=== PATIENT | male | born 1995 | race Hispanic/Latino ===

== ENCOUNTER 2017-05-30 23:06 | Emergency (ER) | payer BC ==
[2017-05-30 23:15] VITALS: BP 129/75; PULSE 66; RESP 16; TEMP 97.3; O2SAT 95
[2017-05-30] MEDS ORDERED: Sodium Chloride 0.9% 1,000 ML IV STA (23:35)
--- NOTE | 2017-05-30 23:53 | ED PDOC ---
HPI: Psych/Substance Abuse Time Seen by Provider: 05/30/17 23:10 Chief Complaint (Nursing): Alcohol Ingestion Chief Complaint (Provider): Alcohol Ingestion ED Caveat: Intoxicated Additional Complaint(s): 21 year old male brought in by EMS for evaluation of alcohol intoxication. History is limited due to alcohol intoxication. Patient was found outside of a bar by police and EMS lying on the sidewalk covered in his own vomit, presumably intoxicated. PMD: unknown Past Medical History Reviewed: Historical Data, Nursing Documentation, Vital Signs, Unable To Obtain (due to alcohol intoxication) Vital Signs: Last Vital Signs Temp 97.3 F L 05/30/17 23:13 Pulse 66 05/30/17 23:13 Resp 16 05/30/17 23:13 BP 129/75 05/30/17 23:13 Pulse Ox 95 05/30/17 23:13 - Family History Family History: States: Unknown Family Hx - Social History Current smoker - smoking cessation education provided: No Alcohol: Social Drugs: Denies - Allergies Allergies/Adverse Reactions: Allergies Allergy/AdvReac Type Severity Reaction Status Date / Time No Known Allergies Allergy Verified 05/30/17 23:15 Review of Systems Review Of Systems: ROS cannot be obtained secondary to pt's inabilty to answer questions. Physical Exam - Reviewed Nursing Documentation Reviewed: Yes Vital Signs Reviewed: Yes - Physical Exam Appears: Positive for: No Acute Distress (actively intoxicated) Eye Exam: Positive for: Other (abrasion to left lower eyelid) ENT: Positive for: Other (dried blood in right nare) Back: Positive for: Other (abrasion to back of left shoulder) Neurologic/Psych: Positive for: Other (arousable to voice but falls back to sleep) - Laboratory Results Result Diagrams: 05/30/17 23:43 05/30/17 23:43 - ECG O2 Sat by Pulse Oximetry: 95 (RA) Pulse Ox Interpretation: Normal Medical Decision Making Medical Decision Making: Time: 23:35 Impression: alcohol intoxication Initial Plan: --Head CT without contrast --Left shoulder x-ray --Alcohol serum --BMP --CBC with differentials --Sodium chloride IV 1,000 mls/ hr --Zofran Inj 4 mg IVP --reevaluation Time: 23:[address] without contrast Findings: Brain: No intracranial hemorrhage. No mass. No edema. Ventricles: No hydrocephalus. Bones/joints: No acute fracture. Soft tissues: Unremarkable. Sinuses: Moderate mucosal thickening of sphenoid sinuses. Scattered minimal mucosal thickening of remaining sinuses. Mastoid air cells: No mastoid effusion. Orbits: Unremarkable as visualized. IMPRESSION: 1. No intracranial hemorrhage. 2. Incidental/non-acute findings are described above. Time: 00:16 Left shoulder X-ray --X-ray reviewed by me, results are negative. 330 Pt. now awake and alert, walking with steady gait. Will d/c home with parents. Scribe Attestation: Documented by Essence Wright, acting as a scribe for Rohith Golden MD Provider Scribe Attestation: All medical record entries made by the Scribe were at my direction and personally dictated by me. I have reviewed the chart and agree that the record accurately reflects my personal performance of the history, physical exam, medical decision making, and the department course for this patient. I have also personally directed, reviewed, and agree with the discharge instructions and disposition. Disposition - Clinical Impression Clinical Impression: Alcohol abuse - Disposition Referrals: Alcoholics Anonymous [Outside] Disposition: Routine/Home Disposition Time: 03:38 Condition: STABLE Instructions: Alcohol Intoxication (GEN) Forms: orderbolt (Albanian)
--- NOTE | 2017-05-30 23:57 | CT ---
EXAM: CT Head Without Intravenous Contrast CLINICAL HISTORY: 21 years old, male; Injury or trauma; Injury ETOH trauma; Initial encounter; Blunt trauma (contusions or hematomas); Additional info: Intox, head trauma TECHNIQUE: Axial computed tomography images of the head/brain without intravenous contrast. All CT scans at this facility use one or more dose reduction techniques, viz.: automated exposure control; ma/kV adjustment per patient size (including targeted exams where dose is matched to indication; i.e. head); or iterative reconstruction technique. Coronal and sagittal reformatted images were created and reviewed. COMPARISON: No relevant prior studies available. FINDINGS: Brain: No intracranial hemorrhage. No mass. No edema. Ventricles: No hydrocephalus. Bones/joints: No acute fracture. Soft tissues: Unremarkable. Sinuses: Moderate mucosal thickening of sphenoid sinuses. Scattered minimal mucosal thickening of remaining sinuses. Mastoid air cells: No mastoid effusion. Orbits: Unremarkable as visualized. IMPRESSION: 1. No intracranial hemorrhage. 2. Incidental/non-acute findings are described above.
[2017-05-30 23:59] LABS: BASO # 0.1 K/uL (0.0-0.2); BASO % 0.7 % (0.0-2.0); EOS # 0.2 K/uL (0.0-0.7); EOS % 1.5 % (0.0-4.0); HEMATOCRIT 46.9 % (35.0-51.0); LYMPH # 3.8 K/uL (1.0-4.3); LYMPH % 25.9 % (20.0-40.0); MEAN CELL VOLUME 86.4 fl (80.0-94.0); MEAN CORPUSCULAR HEMOGLOBIN 28.6 pg (27.0-31.0); MEAN CORPUSCULAR HGB CONC 33.1 g/dL (33.0-37.0); MEAN PLATELET VOLUME 9.2 fl (7.2-11.7); NEUT # 9.5 K/uL (1.8-7.0); NEUT % 64.9 % (50.0-75.0); NRBC % 0.1 % (0.0-0.0); WHITE BLOOD COUNT 14.6 K/uL (4.8-10.8)
[2017-05-31 00:04] LABS: ALCOHOL SERUM 280 mg/dl (0-10); BLOOD UREA NITROGEN 17 mg/dl (9-20); CALCIUM 9.7 mg/dL (8.4-10.2); CARBON DIOXIDE 21 mmol/L (22-30); CHLORIDE 105 mmol/L (98-107); GFR AFRICAN-AMERICAN > 60; GLUCOSE,RANDOM 126 mg/dL (75-110); POTASSIUM 4.2 MMOL/L (3.6-5.0); SODIUM 145 mmol/l (132-148)
--- NOTE | 2017-05-31 11:09 | RAD ---
PROCEDURE: Radiographs of the Left Shoulder HISTORY: intox, fall COMPARISON: No prior. FINDINGS: BONES: Normal. No fracture. JOINTS: Normal. Glenohumeral and acromioclavicular joints preserved. No osteoarthritis. SOFT TISSUES: Normal. OTHER FINDINGS: None. IMPRESSION: Normal radiographs of the left shoulder.
== END 2017-05-31 03:55 | disposition home or self-care (01) ==
LOC: H.ER 23:06
DX: F10.129 Alcohol abuse with intoxication, unspecified (principal); S09.90XA Unspecified injury of head, initial encounter; M25.512 Pain in left shoulder; W19.XXXA Unspecified fall, initial encounter; Y92.480 Sidewalk as the place of occurrence of the external cause
CPT/HCPCS: 70450; 73030; 80048; 82948; 85025; 96374; 99283; G0480; J2405; J7040